=== PATIENT | female | born 1990 | race Two or more races ===

== ENCOUNTER 2022-06-19 16:35 | Emergency (ER) | payer OTHER ==
[~2022-06-19] VITALS: Ht 165.1 cm; Wt 68.0 kg
[2022-06-19 17:00] VITALS: BP 107/55
[2022-06-19] MEDS ORDERED: NEOM10DR11 EACH EAR (18:03)
--- NOTE | 2022-06-19 18:06 | NUR ---
Patient discharged to home in stable condition. Written and verbal after care instructions given. Patient verbalizes understanding of instruction.
== END 2022-06-19 18:06 | disposition home or self-care (01) ==
LOC: ER 16:42
DX: H60.92 Unspecified otitis externa, left ear (principal)